=== PATIENT | female | born 2000 | race African-American/Black ===

== ENCOUNTER 2022-05-04 18:55 | Emergency (ER) | payer OTHER ==
[~2022-05-04] VITALS: Ht 154.9 cm; Wt 54.4 kg
[2022-05-04] MEDS ORDERED: KETOROLAC TROMETHAMINE 30 MG/ML VIAL IM STA (20:07)
[2022-05-04] MEDS ORDERED: DEXAMETHASONE 4 MG TAB PO STA (20:11)
[2022-05-04] MEDS ORDERED: AMOXICILLIN500 MG PO (20:16)
[2022-05-04 20:45] VITALS: BP 108/74
== END 2022-05-04 20:49 | disposition home or self-care (01) ==
LOC: ER 19:41
DX: R50.9 Fever, unspecified (principal); J02.9 Acute pharyngitis, unspecified
CPT/HCPCS: 83518; 87070; 99283; J1885; J8540

== ENCOUNTER 2023-01-05 12:11 | Emergency (ER) | payer MEDICARE ==
[~2023-01-05] VITALS: Ht 154.9 cm; Wt 65.8 kg
[~2023-01-05 12:11] MED LIST: AMOXICILLIN500 MG PO
[2023-01-05 13:12] LABS: CLARITY,URINE CLOUDY (CLEAR); COLOR,URINE YELLOW (YELLOW); KETONES,URINE 2+ (NEGATIVE); LEUKOCYTE ESTERASE ,URINE SMALL (NEGATIVE); NITRITE,URINE NEGATIVE (NEGATIVE); PROTEIN,URINE DIPSTICK NEGATIVE (NEGATIVE); URINE UROBILINOGEN 0.2 mg/dL (0.2 - 1)
[2023-01-05 13:21] LABS: BACTERIA,URINE MODERATE /HPF; EPITHELIAL CELLS,URINE MODERATE /LPF; RBC,URINE 0-5 /HPF (0-5); WBC,URINE (MAN) 21-50 /HPF (0-5)
[2023-01-05 14:17] VITALS: BP 129/75; PULSE 77; RESP 17; TEMP 98.4; O2SAT 100
[2023-01-05] MEDS ORDERED: ONDANSETRON ODT4 MG PO (14:28)
== END 2023-01-05 14:30 | disposition home or self-care (01) ==
LOC: ER 12:25
DX: O26.91 Pregnancy related conditions, unspecified, first trimester (principal); O21.9 Vomiting of pregnancy, unspecified; R10.2 Pelvic and perineal pain; M54.50 Low back pain, unspecified
CPT/HCPCS: 81001; 81025; 99283